=== PATIENT | male | born 1990 | race Two or more races ===

== ENCOUNTER 2017-02-07 13:30 | Emergency (ER) | payer BC ==
[~2017-02-07] VITALS: Ht 177.8 cm; Wt 118.8 kg
[2017-02-07] MEDS ORDERED: methylPREDNISolone SOD SUCC PF 125 MG/2 ML VIAL. ONE (13:32)
[2017-02-07] MEDS ORDERED: EPINEPHrine 1 MG/ML VIAL ONE (13:32)
[2017-02-07] MEDS ORDERED: diphenhydrAMINE 50 MG/ML VIAL ONE (13:32)
[2017-02-07] MEDS ORDERED: FAMOTIDINE 20 MG/2 ML VIAL ONE (13:32)
[2017-02-07] MEDS ORDERED: ONDANSETRON PF 4 MG/2 ML VIAL. ONE (13:36)
[2017-02-07] MEDS ORDERED: IV NORMAL SALINE 1000ML BAG 1,000 ML IV SCH (13:38)
[2017-02-07] MEDS ORDERED: FAMOTIDINE 20 MG/2 ML VIAL IVP ONE (13:45)
[2017-02-07] MEDS ORDERED: methylPREDNISolone SOD SUCC PF 125 MG/2 ML VIAL. IV ONE (13:45)
[2017-02-07] MEDS ORDERED: diphenhydrAMINE 50 MG/ML VIAL IV ONE (13:45)
[2017-02-07] MEDS ORDERED: ONDANSETRON PF 4 MG/2 ML VIAL. IV ONE (13:45)
[2017-02-07] MEDS ORDERED: EPINEPHrine 1 MG/ML VIAL IM ONE (13:45)
[2017-02-07] MEDS ORDERED: IPRATRPIUM/ALBUTEROL 0.5/2.5MG 3 ML NEBU. NEB ONE (13:45)
--- NOTE | 2017-02-07 13:54 | PHYS DOC ---
Adult General Chief Complaint Chief Complaint: ALLERGIC REACTION HPI HPI Patient is a 26 year old male brought to the emergency department by his cousin after he was stung by a bee and developed an allergic reaction. Patient has no history of bee sting allergy or any other allergic reaction. Patient was working, framing in a house, when he was stung on the left ear by a bee, and he began to develop hives and shortness of air. Patient does have a history of asthma which is not severe, he uses an inhaler when necessary. Patient sees a PCP Dr. Mays. Patient has no history of allergic reaction, he has been stung by a bee multiple times in the past and never had any sort of reaction. Review of Systems Review of Systems Constitutional: Denies fever or chills [] Eyes: Denies change in visual acuity, redness, or eye pain [] HENT: Denies nasal congestion or sore throat [] Respiratory: He feels a little wheezy Cardiovascular: Denies chest pain GI: He is a little nauseated : Denies dysuria or hematuria [] Musculoskeletal: Denies back pain or joint pain [] Integument: He has itchy hives on his skin diffusely Neurologic: Denies headache, focal weakness or sensory changes [] Current Medications Current Medications Current Medications Medications (Trade) Dose Ordered Sig/Dylon Start Time Stop Time Status Last Admin Dose Admin Albuterol/ Ipratropium (Duoneb) 3 ml 1X ONCE 02/07/17 13:45 02/07/17 13:50 DC 02/07/17 15:09 3 ML Diphenhydramine HCl (Benadryl) 25 mg 1X ONCE 02/07/17 13:45 02/07/17 13:50 DC 02/07/17 13:38 25 MG Epinephrine HCl (Adrenalin) 0.5 mg 1X ONCE 02/07/17 13:45 02/07/17 13:50 DC 02/07/17 13:36 0.5 MG Famotidine (Pepcid) 20 mg 1X ONCE 02/07/17 13:45 02/07/17 13:50 DC 02/07/17 13:41 20 MG Methylprednisolone Sodium Succinate (SOLU-Medrol 125MG VIAL) 125 mg 1X ONCE 02/07/17 13:45 02/07/17 13:50 DC 02/07/17 13:39 125 MG Ondansetron HCl (Zofran) 4 mg 1X ONCE 02/07/17 13:45 02/07/17 13:50 DC 02/07/17 13:49 4 MG Sodium Chloride 1,000 ml @ 1,000 mls/hr Q1H 02/07/17 13:38 02/07/17 14:37 DC 02/07/17 13:48 1,000 MLS/HR Allergies Allergies Allergies Coded Allergies Type Severity Reaction Last Updated Verified No Known Drug Allergies 02/07/17 No Physical Exam Physical Exam Constitutional: Well developed, well nourished, scratching, alert and mentating normally, no noted dyspnea HENT: Normocephalic, atraumatic, bilateral external ears normal, oropharynx moist, no oral exudates, tongue does not appear swollen, nose normal. Left external ear is red and swollen consistent with the site of the bee sting. No retained stinger is seen. Eyes: conjunctiva normal, no discharge. [] Neck: Normal range of motion, no stridor. [] Cardiovascular:Heart rate regular rhythm, no murmur [] Lungs & Thorax: Good air movement bilaterally with mild expiratory wheezes bilaterally Abdomen: Bowel sounds normal, soft, no tenderness, no masses, no pulsatile masses. [] Skin: Diaphoretic, diffuse urticaria Extremities: No tenderness, no cyanosis, no clubbing, ROM intact, no edema. [] Neurologic: Alert and oriented X 3, normal motor function, normal sensory function, no focal deficits noted. [] Current Patient Data Vital Signs Vital Signs Date Time Temp Pulse Resp B/P (MAP) Pulse Ox O2 Delivery O2 Flow Rate FiO2 02/07/17 15:19 92 18 115/60 (78) 97 Room Air 02/07/17 13:35 98.8 98.8 EKG EKG [] Radiology/Procedures Radiology/Procedures [] Course & Med Decision Making Course & Med Decision Making Pertinent Labs and Imaging studies reviewed. (See chart for details) 26-year-old man presents with anaphylaxis from a bee sting moments prior to arrival. He has diffuse urticaria, diaphoresis, and is wheezing slightly. He was given IM epinephrine, IV Solu-Medrol, Benadryl, and Pepcid. He was a bit nauseated and was given some IV Zofran. He was given a fluid bolus. Within about 10 minutes, the patient was looking a lot better. Hives are improving, his redness is improving. Vitals are stable and he never became hypotensive or dyspneic. Family is at the bedside and I told the patient he will be observed for at least an hour. 1420 Patient's color is improved, urticaria is nearly resolved. Vital signs are stable. Patient is alert without complaints, no dyspnea, visiting with family. Patient was observed a total of about 90 minutes without recurrence of symptoms. I stressed to the patient and his the importance of getting the EpiPen prescription filled and using it if needed. See instructions for plan. [] Dragon Disclaimer Dragon Disclaimer This electronic medical record was generated, in whole or in part, using a voice recognition dictation system. Departure Departure Impression: Primary Impression: Allergic reaction to bee sting Disposition: HOME, SELF-CARE Condition: GUARDED Additional Instructions: As we discussed, you had a life-threatening allergic reaction to a bee sting. From now on, you should consider yourself allergic to bee stings.. Keep Your EpiPen with you at all times. If you have a bee sting, do not hesitate to use it. If you use the EpiPen, you should immediately go to the hospital or call 911. For today, take Benadryl 25 mg every 6 hours starting at 8 PM. Purchase Pepcid or generic [id number] and take one every 12 hours starting at 8 PM. Take Both of these in addition to prescribed prednisone for 4 days. Fill the prescription for EpiPen today and keep with you at all times. Make an appointment with your primary care doctor to discuss this and make your doctor aware of your bee sting allergy. Scripts Epinephrine (EPINEPHRINE) 0.3 Mg/0.3 Ml Auto.injct 0.3 MG IJ 1X for bee sting for 1 Day, #1 SYR Use immediately in case of bee sting Prov: CARLITO JACKSON MD 02/07/17 Prednisone (PREDNISONE) 50 Mg Tablet 1 TAB PO DAILY for allergic reaction, #5 TAB Prov: CARLITO JACKSON MD 02/07/17 CARLITO JACKSON MD Feb 07, 2017 13:54
[2017-02-07 15:19] VITALS: BP 115/60
[2017-02-07] MEDS ORDERED: EPIN0.3A8 IJ (15:23)
[2017-02-07] MEDS ORDERED: PRED50TA PO (15:23)
== END 2017-02-07 15:39 | disposition home or self-care (01) ==
LOC: ER 13:30
DX: T63.441A Toxic effect of venom of bees, accidental (unintentional), initial encounter (principal); W57.XXXA Bitten or stung by nonvenomous insect and other nonvenomous arthropods, initial encounter; Y93.89 Activity, other specified; Y99.8 Other external cause status; Y92.89 Other specified places as the place of occurrence of the external cause
CPT/HCPCS: 94640; 96361; 96372; 96374; 96375; 99284; J0171; J1200; J2405; J2930; J7030; J7620; S0028; 99285-25